=== PATIENT | female | born 1930 | race Caucasian/White ===

== ENCOUNTER 2017-09-04 20:13 | Inpatient (IN) | payer OTHER ==
[~2017-09-04] VITALS: Ht 160 cm; Wt 70.1 kg
[2017-09-04 20:52] LABS: HEMATOCRIT 41.3 % (36.0-46.0); MCH 34.5 PG (29.0-34.0); MCHC 33.4 G/DL (30.0-36.0); MCV 103.3 FL (83-99); MEAN PLAT.VOLUME 10.7 uM^3 (9.5-12.4); PLATELET COUNT 279 K/uL (156-360); RBC DIS.WIDTH-CV 12.1 % (11.8-14.6); RBC DIS.WIDTH-SD 46.2 % (39-53); WHITE BLOOD COUNT 17.2 K/uL (4.1-10.2)
[2017-09-04 20:58] LABS: PROTHROMBIN TIME 11.8 SEC (10.2-12.9)
[2017-09-04 21:00] LABS: PTT 22.2 SEC (25-37)
[2017-09-04 21:12] LABS: CHLORIDE 106 mEq/L (99-109); POTASSIUM 4.7 mEq/L (3.7-5.4); SODIUM 143 mEq/L (136-147)
[2017-09-04 21:14] LABS: GLUCOSE 208 mg/dL (70-99)
[2017-09-04 21:15] LABS: ANION GAP 18 MEQ/L (2-14)
[2017-09-04 21:16] LABS: TOTAL BILIRUBIN 0.5 mg/dL (0.0-1.0)
[2017-09-04 21:17] LABS: ALKALINE PHOSPHATASE 106 IU/L (3-129)
[2017-09-04 21:18] LABS: GFR ESTIMATE (CALCULATED) 41 mL/min/
[2017-09-04 21:19] LABS: UREA NITROGEN (BUN) 22 mg/dL (9-23)
[2017-09-04 21:22] LABS: TROP-I INTERPRETATION NEGATIVE; TROPONIN-I < 0.01 ng/mL (0.0-0.30)
[2017-09-04 21:42] LABS: ADD MIUA? YES; BILIRUBIN NEGATIVE; BLOOD SMALL; COLOR YELLOW ((YELLOW)); GLUCOSE (STRIP) NEGATIVE; KETONES NEGATIVE; LEUKOCYTES LARGE; NITRITE POSITIVE; PROTEIN (STRIP) NEGATIVE; SPECIFIC GRAVITY 1.013 (1.000-1.030); UROBILINOGEN 0.2 MG/DL (0.2-1.0)
[2017-09-04 21:50] LABS: BACTERIA 3+ /HPF; EPITHELIAL CELLS NONE SEEN /HPF; HYALINE CASTS 0-5 /LPF; MUCUS TRACE /LPF; UCUL ADDED? YES; WHITE BLOOD CELLS TNTC /HPF (0-5); WHITE BLOOD CELLS CLUMP MANY /HPF (0-5)
[2017-09-05] MEDS ORDERED: LO-DOSE ASPIRIN81 M2 PO (01:28)
[2017-09-05] MEDS ORDERED: LORATADINE10 M2 PO (01:29)
[2017-09-05] MEDS ORDERED: PRINIVIL20 MG PO (01:30)
[2017-09-05] MEDS ORDERED: MIRTAZAPINE7.5 MG PO (01:31)
[2017-09-05] MEDS ORDERED: SALINE NASAL SP45 ML BOTH NARES (01:33)
[2017-09-05] MEDS ORDERED: TRADJENTA5 MG PO (01:35)
[2017-09-05] MEDS ORDERED: METFORMIN HCL850 MG PO (01:36)
[2017-09-05] MEDS ORDERED: CYANOCOBALAM1000 MCG PO (01:36)
[2017-09-05] MEDS ORDERED: ACETAMINOPHEN325 M1 PO (01:38)
[2017-09-05] MEDS ORDERED: DULCOLAX10 MG PR (01:39)
[2017-09-05] MEDS ORDERED: FLEET MINERAL133 ML PR (01:40)
[2017-09-05] MEDS ORDERED: MAALOX ADVANCE355 ML PO (01:41)
[2017-09-05] MEDS ORDERED: MILK OF MAGN PO (01:42)
[2017-09-05] MEDS ORDERED: KONSYL1 EACH PO (01:45)
[2017-09-05 02:00] VITALS: BP 100/50
[2017-09-05 07:14] LABS: ALKALINE PHOSPHATASE 86 IU/L (3-129); ANION GAP 12 MEQ/L (2-14); CHLORIDE 109 MEQ/L (99-109); GFR ESTIMATE (CALCULATED) 50 mL/min/; GLUCOSE 135 mg/dL (70-99); POTASSIUM 4.4 MEQ/L (3.7-5.4); SAMPLE HEMOLYSIS CHECK 0; SAMPLE ICTERIC CHECK 0; SAMPLE LIPEMIA CHECK 0; SODIUM 143 MEQ/L (136-147); TOTAL BILIRUBIN 0.7 MG/DL (0.0-1.0); UREA NITROGEN (BUN) 20 mg/dL (9-23)
[2017-09-05 07:55] VITALS: BP 163/72
[2017-09-05 11:52] LABS: POINT-OF-CARE METER ID UU13113725
[2017-09-05 11:57] VITALS: BP 143/62
[2017-09-05 15:30] VITALS: BP 93/58
[2017-09-05 16:34] LABS: POINT-OF-CARE METER ID UU13113725
[2017-09-05 21:49] LABS: POINT-OF-CARE METER ID UU13113725
[2017-09-06 00:48] VITALS: BP 124/58
[2017-09-06 06:48] LABS: POINT-OF-CARE METER ID UU13113725
[2017-09-06 07:27] VITALS: BP 124/58; BP 187/75
[2017-09-06 11:17] LABS: POINT-OF-CARE METER ID UU13113725
[2017-09-06 15:35] VITALS: BP 111/52
[2017-09-06 17:01] LABS: POINT-OF-CARE METER ID UU13113774
[2017-09-06 22:02] LABS: POINT-OF-CARE METER ID UU13113774
[2017-09-06 23:46] VITALS: BP 149/70
[2017-09-07 06:36] VITALS: BP 135/66
[2017-09-07 06:39] LABS: POINT-OF-CARE METER ID UU13113774
[2017-09-07 10:51] VITALS: BP 149/72
[2017-09-07 11:09] LABS: POINT-OF-CARE METER ID UU13113774
[2017-09-07 15:03] VITALS: BP 150/65
[2017-09-07 16:06] LABS: POINT-OF-CARE METER ID UU13113774
[2017-09-07 21:17] LABS: POINT-OF-CARE METER ID UU13113725
[2017-09-07 23:59] VITALS: BP 141/67
[2017-09-08 06:31] LABS: MCH 34.9 PG (29.0-34.0); MCHC 33.9 G/DL (30.0-36.0); MCV 102.9 FL (83-99); MEAN PLAT.VOLUME 10.8 uM^3 (9.5-12.4); PLATELET COUNT 237 K/uL (156-360); RBC DIS.WIDTH-SD 45.4 % (39-53); WHITE BLOOD COUNT 7.7 K/uL (4.1-10.2)
[2017-09-08 06:32] LABS: POINT-OF-CARE METER ID UU13113725
[2017-09-08 06:51] VITALS: BP 173/74
[2017-09-08 06:55] LABS: ALKALINE PHOSPHATASE 77 IU/L (3-129); ANION GAP 8 MEQ/L (2-14); CHLORIDE 109 MEQ/L (99-109); GFR ESTIMATE (CALCULATED) 56 mL/min/; GLUCOSE 109 mg/dL (70-99); POTASSIUM 4.1 MEQ/L (3.7-5.4); SAMPLE HEMOLYSIS CHECK 0; SAMPLE ICTERIC CHECK 0; SAMPLE LIPEMIA CHECK 0; SODIUM 144 MEQ/L (136-147); UREA NITROGEN (BUN) 11 mg/dL (9-23)
[2017-09-08 06:56] LABS: TOTAL BILIRUBIN 0.5 MG/DL (0.0-1.0)
[2017-09-08] MEDS ORDERED: KEFLEX500 MG PO (08:40)
[2017-09-08 11:01] LABS: POINT-OF-CARE METER ID UU13113725
== END 2017-09-08 11:52 | DRG 690 ==
LOC: EME → EDBD 20:13 → EME 20:13 → EDOF 23:53 → 5EAST 23:53 → ENRESERV 23:54 → 5EAST 09-05 01:52 → ENPENDDIS 09-08 → EDPENDDIS 09-08 → EDPENDDISTM 09-08 11:30 → 5EAST 09-08 11:52
PROVIDERS: Emergency Medicine; Internal Medicine
DX: N39.0 Urinary tract infection, site not specified (principal); B96.1 Klebsiella pneumoniae [K. pneumoniae] as the cause of diseases classified elsewhere; R09.02 Hypoxemia; G30.9 Alzheimer's disease, unspecified; F02.80 Dementia in other diseases classified elsewhere, unspecified severity, without behavioral disturbance, psychotic disturbance, mood disturbance, and anxiety; I10 Essential (primary) hypertension; E11.9 Type 2 diabetes mellitus without complications; K62.3 Rectal prolapse; R32 Unspecified urinary incontinence; F32.9 Major depressive disorder, single episode, unspecified; R15.9 Full incontinence of feces; I69.398 Other sequelae of cerebral infarction; R13.0 Aphagia; Z87.891 Personal history of nicotine dependence; Z79.82 Long term (current) use of aspirin
CPT/HCPCS: 70450; 71010; 71020; 74176; 80053; 81003; 82948; 83605; 84484; 85027; 85610; 85730; 87040; 87077; 87086; 87186; 93005; 99281; 99285; J0696; J1650; J1815; J2060; J2405; J2543; J3370; J7030; J7050